=== PATIENT | male | born 2000 | race Caucasian/White ===

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

== ENCOUNTER → 2022-04-03 | Outpatient (CLI) | payer OTHER | LOC: M LAB 09:47 | PROVIDERS: ATTEND Pediatrics | DX: E55.9 Vitamin D deficiency, unspecified (principal) ==

== ENCOUNTER → 2023-01-22 | Outpatient (CLI) | payer MEDICARE, OTHER | LOC: M EKG 16:37 | PROVIDERS: ATTEND Pediatrics | DX: R42 Dizziness and giddiness (principal); I44.0 Atrioventricular block, first degree ==

== ENCOUNTER → 2023-02-26 | Outpatient (CLI) | payer MEDICARE, OTHER | LOC: M LAB 09:02 | PROVIDERS: ATTEND Pediatrics | DX: I44.0 Atrioventricular block, first degree (principal) ==

== ENCOUNTER → 2023-05-13 | Outpatient (CLI) | payer MEDICARE, OTHER | LOC: M LAB 11:32 | PROVIDERS: ATTEND Physician Assistant | DX: E55.9 Vitamin D deficiency, unspecified (principal) ==

== ENCOUNTER → 2024-02-17 | Outpatient (CLI) | payer MEDICARE, OTHER ==
[~2024-02-17] VITALS: Ht 180.3 cm; Wt 108.0 kg
[~2024-02-17] MED LIST changes: +MECL-209 PO; -MECL1TAB31 PO; +MIDAZOLAM INJ 2MG/2ML VIAL As Ordered ONE
[2024-02-17 09:00] VITALS: TEMP 96.8
[2024-02-17 11:00] VITALS: BP 115/71; O2SAT 98
== END ==
LOC: M RADPRO 08:39
PROVIDERS: ATTEND Psychiatry & Neurology Neurology
DX: R51.9 Headache, unspecified (principal); R41.82 Altered mental status, unspecified; R42 Dizziness and giddiness
CPT/HCPCS: 70551; J2250

== ENCOUNTER → 2024-10-04 | Outpatient (CLI) | payer MEDICARE, MEDICAID ==
[~2024-10-04] MED LIST changes: -CYPR4TA PO; +CYPR4TAB36 PO; -MIDAZOLAM INJ 2MG/2ML VIAL As Ordered ONE
== END ==
LOC: M PLAIMG 09:52
PROVIDERS: ATTEND Nurse Practitioner Family
DX: M25.572 Pain in left ankle and joints of left foot (principal); M79.89 Other specified soft tissue disorders; R93.6 Abnormal findings on diagnostic imaging of limbs

== ENCOUNTER 2024-12-27 03:58 | Emergency (ER) | payer MEDICAID, MEDICARE ==
[~2024-12-27] VITALS: Ht 182.9 cm; Wt 106.0 kg
[2024-12-27 04:35] LABS: IONIZED CALCIUM 4.7 MG/DL (4.5-5.3)
[2024-12-27 04:40] LABS: BASO % 0.4 % (0.0-1.0); EOS # 0.1 10^3/uL (0.0-0.5); EOS % 1.8 % (0.0-3.0); HEMATOCRIT 42.6 % (42.0-52.0); HEMOGLOBIN 14.5 g/dl (13.5-17.5); LYMPH # 1.8 10^3/uL (1.5-5.0); LYMPH % 26.9 % (24.0-44.0); MEAN CORPUSCULAR HEMOGLOBIN 27.3 pg (27.0-33.0); MEAN CORPUSCULAR VOLUME 80.1 fl (80.0-96.0); MONO # 0.4 10^3/uL (0.0-0.8); NEUTROPHILS # 4.2 10^3/uL (1.5-8.5); PLATELET COUNT, AUTOMATED 225 10^3/uL (150-450); RED BLOOD COUNT 5.32 10^6/uL (4.30-6.10); WHITE BLOOD COUNT 6.7 10^3/uL (4.0-10.0)
[2024-12-27 05:07] LABS: ALBUMIN 4.1 G/DL (3.2-5.2); ALKALINE PHOSPHATASE 79 U/L (40-129); ALT/SGPT 75 U/L (7.0-40); AST/SGOT 66 U/L (<34); BILIRUBIN,DIRECT 0.3 MG/DL (<0.4); BILIRUBIN,TOTAL 0.6 MG/DL (0.3-1.2); BLOOD UREA NITROGEN 10 MG/DL (9-23); CALCIUM LEVEL 9.3 MG/DL (8.5-10.1); CARBON DIOXIDE LEVEL 27 MMOL/L (20-31); CHLORIDE LEVEL 105 MMOL/L (98-107); CREATININE FOR GFR 0.76 MG/DL (0.70-1.30); GLOMERULAR FILTRATION RATE > 90.0 (>60); GLUCOSE, FASTING 115 MG/DL (60-100); PHOSPHORUS LEVEL 2.1 MG/DL (2.5-4.9); POTASSIUM SERUM 3.8 MMOL/L (3.5-5.1); SODIUM LEVEL 144 MMOL/L (136-145); TOTAL PROTEIN 6.9 G/DL (5.7-8.2)
[2024-12-27] MEDS: VALPROATE SOD INJ 1,000 MG in D5W 50 ML IV ONE (07:55)
[2024-12-27] MEDS ORDERED: DEPA1TAB3 PO (07:55)
[2024-12-27 09:00] VITALS: BP 123/63; TEMP 98; O2SAT 95
== END 2024-12-27 09:28 | disposition home or self-care (01) ==
LOC: EDBD 03:58 → M ED 03:58
DX: G40.909 Epilepsy, unspecified, not intractable, without status epilepticus (principal); F84.0 Autistic disorder; Z88.1 Allergy status to other antibiotic agents; Z88.8 Allergy status to other drugs, medicaments and biological substances; Z79.899 Other long term (current) drug therapy

== ENCOUNTER 2025-05-01 23:33 | Emergency (ER) | payer MEDICAID, MEDICARE ==
[~2025-05-01] VITALS: Ht 182.9 cm; Wt 106.1 kg
[~2025-05-01 23:33] MED LIST changes: +DEPA1TAB3 PO
[2025-05-01] MEDS ORDERED: LEVE500T5 PO (23:45)
[2025-05-01] MEDS ORDERED: CETI-24 PO (23:45)
[2025-05-02 07:43] VITALS: BP 130/76; O2SAT 98
[2025-05-02 07:51] VITALS: TEMP 98
[2025-05-02] MEDS: MAGNESIUM CITRATE 300 ML BTL PO ONE (07:51)
== END 2025-05-02 07:59 | disposition home or self-care (01) ==
LOC: M ED 23:33
DX: R10.9 Unspecified abdominal pain (principal); K59.00 Constipation, unspecified; F84.0 Autistic disorder; G40.909 Epilepsy, unspecified, not intractable, without status epilepticus; H81.4 Vertigo of central origin; R01.1 Cardiac murmur, unspecified; Z88.1 Allergy status to other antibiotic agents; Z79.899 Other long term (current) drug therapy